=== PATIENT | male | born 1955 | race Caucasian/White ===

== ENCOUNTER 2016-08-28 05:58 | Day surgery (SDC) | payer OTHER ==
[2016-08-28] VITALS (14 sets, daily range): BP systolic 81–145; BP diastolic 44–82; PULSE 74–107; RESP 6–18; O2SAT 93–99
[~2016-08-28] VITALS: Ht 188 cm; Wt 112.6 kg
[2016-08-28] MEDS: Lactated Ringer's 1,000 ML IV SCH ×5 (05:00→22:41)
[~2016-08-28 05:58] MED LIST: AMT25T PO; CYCL5TAB PO; DOCU250C2 PO; HYDR25TA4 PO; LISI40TA PO; NAPR250T PO; OXYC1TAB24 PO; TAMS0.4C98 PO
[2016-08-28] MEDS ORDERED: Bacitracin 50,000 unit Inj IRRIGATION ONE ×2 (06:00→08:17)
[2016-08-28] MEDS ORDERED: Thrombin Powder 5,000 Unit TOPICAL ONE ×2 (06:00→08:17)
[2016-08-28] MEDS ORDERED: CeFAZolin Inj 2 GM in IV Premix 1 EACH IV ONE (06:00)
--- NOTE | 2016-08-28 07:12 | PCM.HPANE ---
Patient Data Date of Service: Aug 28, 2016 Surgeon Admitting Provider: Attending Provider:Sigifredo Chavez MD Primary Care Physician:Dilia Del Rio Other Provider:Tori Arango Anesthesia Reason for Visit Lumbar Stenosis With Neurogenic Cladication Ht/WT & BMI Height (Feet): 6 Height (Inches): 2 Weight (Kilograms): 112.6 Body Mass Index 31.00 Allergies Coded Allergies: No Known Allergies (Unverified , 08/27/16) Past Anesthesia History Anesthesia History: Denies:: Abnormal Airway, Anesthesia Reactions, Difficult Intubation, Fam Anesthesia Reaction, Fam Malignant Hypertherm, Malignant Hyperthermia Diabetes History Hx Diabetes?: No MRSA MRSA: No Medications Hypertension Medication: Yes (HCTZ,LISINOPRIL) Home Meds Incl Beta Jovanni: No Reported Medications oxyCODONE-Acetaminophen 5-325 mg 1 Each Tablet1-2 Tab PO Q4-6H PRN For Pain Ref 0 08/27/16 Docusate Sodium 250 Mg [id number] Mg PO BID PRN For Constipation Ref 0 08/27/16 Cyclobenzaprine 5 Mg Tablet5-10 Mg PO TID PRN Spasm 08/27/16 Tamsulosin (Flomax)0.4 Mg Capsule0.4 Mg PO DAILY Ref 0 11/30/15 Naproxen 250 Mg [id number] Mg PO BID PRN For Pain Ref 0 11/30/15 Lisinopril 40 Mg [id number] Mg PO DAILY 30 Days Ref 0 11/30/15 Hydrochlorothiazide 25 Mg [id number] Mg PO DAILY 30 Days Ref 0 11/30/15 Amitriptyline 25 Mg Tab25 Mg PO HS Ref 0 11/30/15 Discontinued Reported Medications [infla-mazing] No Conflict Check 12/01/15 [red vessel] No Conflict Check 12/01/15 History History of ENT Problems?: Yes HEENT History: Positive for:: Dysphagia Hearing Problem (tinitis) Sinus Problem (S/P SINUS SURGERY) Denies:: Abnormal Airway Difficult Intubation Denture Type: None Teeth Condition: Within Normal Limits Hx of Heart Problems?: Yes Cardiovascular History: Positive for:: Hypertension Denies:: AICD Atrial Fibrillation Chest Pain Pacemaker Valvular Heart Disease Hx of Respiratory Problem?: Yes Respiratory History: Positive for:: Asthma (childhood) Use of C-PAP Machine (JAMES+ W/ CPAP) Denies:: COPD Cough Hemoptysis Pneumonia Tuberculosis Hx Neurologic Problems?: Yes Neurological History: Denies:: CVA Other Neurological Pertinent: HX CONCUSSION Hx of GI Problems?: Yes Hx of Problems?: No Male Hx: Denies:: Prostate Problems Scrotal Mass Testicular Surgery Skin History: Denies:: History Skin Disorders? Pressure Ulcers Hx Musculoskeletal Problems?: Yes Musculoskeletal History: Positive for:: Osteoarthritis Denies:: Back Injury (C/OF BACK PAIN, LT FOOT DROP) Joint Replacement Hx of Psycho/Social Problems?: Yes Psycho Social History: Positive for:: Anxiety Hx Depression Hx Surgeries?: Yes (deviated septum, throat surgery for apnea) Hx Any Other Health Problems?: Yes Other History: Denies:: Cancer Endocrine Disease Hospitalization Thyroid Disease Hx Diabetes: No Hx Alcohol Use: Yes (occas) Smoking Status: Never Smoker Have You Smoked inLast 12 mo: No Stop/Bang Treated for Sleep Apnea?: Yes Do You Have a CPAP Machine?: Yes S-Snoring: Do You Snore Loudly: No T-Tired: feel tired, fatigued: Yes O-Obsered: Observed not breath: Yes P-Blood Pressure: treated: Yes B- Body Mass Index > 35 kg/m2: No A- Age over 50: Yes N- Neck Large Circumference: No G- Gender Male: Yes JAMES Total Score: 5 JAMES Category 1: Yes Risk Assessment Category Category 1A: Patient has history of documented sleep apnea, and HAS NOT received any narcotic, sedative or anesthesia administration during this stay. Category 1B: Patient has history of documented sleep apnea, and HAS received any narcotic , sedative or anesthesia administration during this stay Category 2: Patient has SUSPECTED Obstructive Sleep Apnea, and HAS received any narcotic , sedative or anesthesia administration during this stay. Category 3: Patient has SUSPECTED Obstructive Sleep Apnea and HAS NOT received narcotic, sedative or anesthesia administration during this stay. Category 4: Outpatient in Procedural Areas with known sleep apnea or who screen positive for High Risk via the STOP/BANG questionnaire. Exam Exam Vital Signs Vital Signs Date Time Temp Pulse Resp B/P Pulse Ox O2 Delivery O2 Flow Rate FiO2 08/28/16 06:36 36.6 80 16 145/82 93 Room Air General Appearance: Alert, Oriented X3, Cooperative, No Acute Distress HEENT/AIRWAY: MP 3 Lungs: Clear to Auscultation, Normal Air Movement Heart: Exam Unremarkable, Regular Rate/Rhythm, No Murmurs/Rubs/Gallops Meds/Labs/Diagnostics Admission Meds Current Medications Lactated Ringer's (Lr) 1,000 ml @ 120 mls/hr Q8H20M IV Last administered on t 06:45; Start 08/28/16 at 05:00; Stop 08/28/16 at 13:19 Plan Impression Patient chart reviewed, patient interviewed and anesthestic plan with risks, benefits, and alternatives discussed, and informed consent obtained. NPO per Anesth. Guidelines: Yes ASA Physical Status: ASA2 Mod Systemic Disease Anesthetic Plan: GA Bene/Risks/Altern/Consents: Yes HP Complete Prior to Induction: Yes Rashel Griffiths MD Aug 28, 2016 07:12
[2016-08-28] MEDS ORDERED: Lactated Ringer's 500 ML IV PRN (07:33)
[2016-08-28] MEDS ORDERED: Lactated Ringer's 1,000 ML IV SCH (07:33)
[2016-08-28] MEDS ORDERED: Phenylephrine 10,000 mCg/mL Inj IVPUSH PRN (07:35)
[2016-08-28] MEDS ORDERED: hydrALAZINE 20 mg/mL Inj IVPUSH PRN (07:35)
[2016-08-28] MEDS ORDERED: fentaNYL-PF 50 mCg/mL 2 mL Inj IVPUSH PRN (07:35)
[2016-08-28] MEDS ORDERED: MetoCLOpramide 5 mg/mL 2 mL Inj IVPUSH PRN (07:35)
[2016-08-28] MEDS ORDERED: Atropine 0.4 mg/mL Inj IVPUSH PRN (07:35)
[2016-08-28] MEDS ORDERED: Ondansetron 2 mg/mL 2 mL Inj IVPUSH PRN ×3 (07:35→12:05)
[2016-08-28] MEDS ORDERED: Labetalol 5 mg/mL 4 mL Inj IV PRN (07:35)
[2016-08-28] MEDS ORDERED: HYDROmorphone 1 mg/mL Inj IVPUSH PRN ×2 (07:35→12:05)
[2016-08-28] MEDS ORDERED: EPHEDrine Sulfate 50 mg/mL Inj IVPUSH PRN (07:35)
[2016-08-28] MEDS ORDERED: Bupivacaine Liposome 1.3% 20 mL Inj ONE (08:00)
[2016-08-28] MEDS ORDERED: Lactated Ringer's 1,000 ML IV ONE ×2 (08:10→09:13)
[2016-08-28] MEDS ORDERED: Bupivacaine-MPF 0.25% 30 mL Inj INFILTRATE ONE (08:17)
--- NOTE | 2016-08-28 08:31 | DRSVH ---
PROCEDURE: X-RAY LUMBAR SPINE, 1 VIEW INDICATIONS: BILATERAL LUMBAR LAMINECTOMY COMPARISON: [facility], MR, LUMBAR SPINE W/O CONTRAST, 12/10/2013, 13:56. FINDINGS: 1 limited intraoperative fluoroscopically stored images of the lumbosacral junction was obtained for intraoperative hardware localization purposes. This image is not meant for diagnostic purposes. Int raoperative findings related to a lumbar fusion procedure are present. A marker is seen along the po sterior soft tissues directed towards the L5-S1 level. IMPRESSION: Intraoperative images of the lumbosacral junction. Note: The marker at the L5-S1 level was discussed with Dr. Chavez by telephone at 0827 hours on . Dictated by: Byron Santos M.D. on 08/28/2016 at 8:25 Approved by: Byron Santos M.D. on 08/28/2016 at 8:29
[2016-08-28] MEDS ORDERED: Dexamethasone 4 mg/mL Inj IVPUSH PRN (12:05)
[2016-08-28] MEDS ORDERED: Senna-Docusate 8.6-50 mg Tablet PO PRN (12:05)
[2016-08-28] MEDS ORDERED: Sodium Biphos-Phos 133 mL Enema RECTAL PRN (12:05)
[2016-08-28] MEDS ORDERED: Polyethylene Glycol (PEG) 17 Gm Powder PO PRN (12:05)
[2016-08-28] MEDS ORDERED: Magnesium Hydroxide 10 mL Oral Concentration PO PRN (12:05)
[2016-08-28] MEDS: Acetaminophen IV 1,000 MG in IV Premix 1 EACH IV SCH ×2 (12:05→18:06)
[2016-08-28] MEDS ORDERED: Phenylephrine/NS-PF 100 mCg/mL 5 mL Syringe IVPUSH ONE ×2 (12:22→14:03)
--- NOTE | 2016-08-28 12:57 | OP ---
[address] [address] OPERATIVE REPORT PATIENT: DAV GILL : 1955 MR#: [id number] ADMIT: 08/28/2016 JOB ID: [id number] DATE OF SURGERY: 08/28/2016 SURGEON: Sigifredo Chavez MD PREOPERATIVE DIAGNOSIS(ES): L3, L4, L5, S1 bilateral stenosis. POSTOPERATIVE DIAGNOSIS(ES): L3, L4, L5, S1 bilateral stenosis. PROCEDURE: 1. Bilateral L3, L4, L5, and S1 partial laminectomy and foraminotomies. 2. [place] of subcutaneous fat through a separate incision for epidural fat graft. ATTENDING SURGEON: Sigifredo Chavez MD ORDER DESK CLERK: Alton Gomez PA-C. The bilingual office assistant provided irrigation, retraction, and suction, and was medically necessary. OPERATIVE FINDINGS: Severe spinal stenosis with calcification of the ligamentum flavum at the interspinous spaces at L3-4, L4-5, and L5-S1. Deficient dura due to calcified ligamentum flavum and unintentional incidental durotomies repaired primarily. OPERATIVE PROCEDURE: Patient was brought to the operating room. General anesthesia with oral intubation was administered. Patient was turned prone on the laminectomy frame. The back was prepped and draped in sterile fashion. IV Ancef was given. Time-out was performed. All extremities were padded. Compression boots were applied to the legs. The skin was prepped and draped in a sterile fashion. Skin and paraspinal muscles were injected with Marcaine containing epinephrine. C-arm fluoroscopy was used to localize the incision. Midline incision was made from L3 to S1. The incision was carried down through subcutaneous tissue and on both sides of the spinous processes from L3 to S1 bilaterally. Paraspinal muscles were stripped off the lamina. Additional imaging was taken with the fluoroscopic unit to confirm levels. A deep self-retaining retractor was placed. The inferior half of the L3, L4, and L5 spinous processes were removed with bone rongeur. The superior edge of the S1 spinous process was also removed. The lamina was then thinned out with a high-speed bur and under the operating microscope the lamina and medial facets at L3-4, L4-5, and L5-S1 were thinned down. Severely thickened yellow ligament was encountered at each level. The ligament was adherent to the thecal sac and was partially calcified at each level. Under the microscope, with microdissection technique, a small curette was used to carefully dissect the calcified ligament away from the dura. During this dissection there were several incidental durotomies that could not be avoided because of the deficient dura. These were each repaired primarily with 7-0 [place]-Omar suture in a watertight fashion. The largest of these was on the left side at the L3-4 interlaminar space and then there were smaller ones on the left at L4-5 and L5-S1. Dissection was carried out laterally until the lateral wall of the spinal canal was identified and the L3, L4, L5, and S1 nerve roots were visualized and decompressed. Hemostasis was obtained with bipolar cautery. Complete decompression was confirmed by visual inspection and palpation with a David elevator. Duraform dural graft matrix was placed on the exposed dura to reinforce the closure and then fibrin glue was injected over that. Subcutaneous fat was harvested through a separate skin incision that was adjacent to the primary incision and pieces of subcutaneous fat were added to reinforce the dural closure at each laminotomy defect. The wound was then closed with 0-Vicryl fascia closely spaced, 2-0 Vicryl subcuticular, and a 4-0 Vicryl subcuticular on the skin. Liposomal bupivacaine was injected into the paraspinal muscles and fascia and into the subcutaneous tissue before final closure. A sterile dressing was applied. The patient was turned supine, extubated, and brought to the recovery room in stable condition. There were no intraoperative complications. ESTIMATED BLOOD LOSS: 100 cc.
--- NOTE | 2016-08-28 13:33 | PCM.ANEP1 ---
Post Anesthesia PACU Phase 1 Assessment Date of Service: Aug 28, 2016 Vital Signs Vital Signs Date Time Temp Pulse Resp B/P Pulse Ox O2 Delivery O2 Flow Rate FiO2 08/28/16 13:30 85 17 115/64 95 Nasal Cannula 2 08/28/16 13:17 88 14 106/61 94 Nasal Cannula 2 08/28/16 13:04 84 15 104/67 95 Nasal Cannula 2 08/28/16 12:50 79 13 97/49 99 Simple Mask 10 08/28/16 12:35 81 6 94/48 99 Simple Mask 10 08/28/16 12:20 78 15 84/44 99 Simple Mask 10 08/28/16 12:15 79 13 81/44 99 Simple Mask 10 08/28/16 12:10 75 15 82/47 98 Simple Mask 10 08/28/16 12:05 36.3 74 14 87/44 98 Simple Mask 10 08/28/16 06:36 36.6 80 16 145/82 93 Room Air Anesthetic Administered: GA Level of Alertness: Awake, talking MILLER's with Equal Strength: Yes Pain: Yes Pain Scale Score: 3 Nausea or Vomiting: No CV Function & Hydration Stable: Yes Airway Device: Oralpharangeal Airway Oxygen Delivery: Nasal Cannula Lungs: Clear to Auscultation, Normal Air Movement PACU Phase 2 Assessment Complications: No Follow up Care: No Patient Instructions Provided: Yes Rashel Griffiths MD Aug 28, 2016 13:33
[2016-08-28] MEDS ORDERED: Vasopressin 20 Unit/mL Inj ONE (14:03)
[2016-08-28] MEDS ORDERED: EPHEDrine/NS 5 mg/mL 5 mL Syringe ONE (14:03)
[2016-08-28] MEDS ORDERED: Lidocaine PF 1% 30 mL Inj ONE (14:03)
[2016-08-28] MEDS ORDERED: Ondansetron 2 mg/mL 2 mL Inj ONE (14:03)
[2016-08-28] MEDS ORDERED: HYDROmorphone 2 mg/mL Inj ONE (14:03)
[2016-08-28] MEDS ORDERED: Ketamine 10 mg/mL 20 mL Inj ONE (14:03)
[2016-08-28] MEDS ORDERED: Dexamethasone 4 mg/mL Inj ONE (14:03)
[2016-08-28] MEDS ORDERED: fentaNYL-PF 50 mCg/mL 2 mL Inj ONE (14:03)
[2016-08-28] MEDS ORDERED: Succinylcholine Chloride 20 mg/mL 5 mL Inj ONE (14:09)
[2016-08-28] MEDS ORDERED: Propofol 10,000 mCg/mL 20 mL Inj ONE (14:09)
[2016-08-28] MEDS: CeFAZolin Inj 2 GM in IV Premix 1 EACH IV SCH (16:50)
[2016-08-28] MEDS: Senna-Docusate 8.6-50 mg Tablet PO SCH (19:57)
[2016-08-29] MEDS: Acetaminophen IV 1,000 MG in IV Premix 1 EACH IV SCH ×3 (00:13→12:20)
[2016-08-29 00:16] VITALS: BP 130/73; PULSE 96; RESP 16; O2SAT 97
[2016-08-29] MEDS: CeFAZolin Inj 2 GM in IV Premix 1 EACH IV SCH (00:46)
[2016-08-29] MEDS: Lactated Ringer's 1,000 ML IV SCH ×2 (04:05→12:05)
[2016-08-29 04:19] VITALS: BP 144/83; PULSE 95; RESP 18; O2SAT 97
[2016-08-29] MEDS ORDERED: Lisinopril 40 Tablet PO SCH (08:30)
[2016-08-29] MEDS: Senna-Docusate 8.6-50 mg Tablet PO SCH (09:10)
[2016-08-29 09:15] VITALS: BP 125/81; PULSE 95; RESP 20; O2SAT 99
--- NOTE | 2016-08-29 10:01 | PCM.DISURG ---
Surgical Discharge Instruction Date of Service Aug 29, 2016 Dates of Hospitalization Date of Hospital Admission Aug 28, 2016 at 13:49 Providers Admitting Physician: Sigifredo Chavez MD Primary Care Physician: Dilia Del Rio Attending Physician: Sigifredo Chavez MD Discharge Diagnosis Discharge Diagnosis Status post Bilateral L3, L4, L5, and S1 partial laminectomy and foraminotomies with harvest of subcutaneous fat through a separate incision for epidural fat graft. Post Operative diagnosis Status post Bilateral L3, L4, L5, and S1 partial laminectomy and foraminotomies with harvest of subcutaneous fat through a separate incision for epidural fat graft Additional Instructions Discharge Instructions Lumbar Decompression Instructions What is my recovery like? The hospital stay is usually overnight with discharge the next day. A lumbar brace is worn for comfort only. What are my restrictions? You should not lift anything heavier than five pounds. You should not perform any excessive bending from the waist or twisting movements. Can I Shower? You may shower when you go home. You must remove the outside dressing on the 7th day after surgery, or change as needed if soiled or saturated (replacing new sterile gauze & water proof dressing) otherwise leave alone. The remaining small pieces of tape (steri-strips) directly on top of the incision may get wet. The steri-strips will fall off on their own. Can I drive? No, you should not drive until specifically given permission from your Doctor in a follow up appointment. Most Patient's can drive in 2-3 weeks if they are not taking narcotic pain medications or muscle relaxers. You may ride in a car, but should avoid trips longer than two hours in duration. When can I return work / sports? Your Doctor will discuss your return to work with you on your first postoperative follow-up appointment. Most patients may return to work within 2 weeks for sedentary jobs. More physically demanding jobs may require 3-6 months of healing before such work can be considered. When should I call the doctor? You should call your Doctor or go to the Emergency Department if you develop chest pain, over-sedation, shortness of breath, a temperature greater than 101.5 F, severe uncontrolled pain or weakness, loss of bowel or bladder function , choking, lots or drainage, pus discharge or constipation. Instructions Regarding Comfort & Pain Medication Use: During the recovery period , even with the use of pain medication, you may experience pain at the site of surgery. You may also have the same type of pain you had before surgery. Please use your pain scale as a guide for taking your pain medication. When your pain is greater than 4 out of 10, or when your pain reaches your personal tolerable level of pain, take your pain medication as prescribed. Use your pain medication on an 'as needed' basis. This means if your pain level is within your tolerable level of pain you DO NOT need to take the medication. As you get better, you will notice you can increase the time interval between doses and decrease the number of tablets you are taking, gradually taking less and less pain medication. Taking pain medication when it is not necessary (for example when your pain is tolerable or acceptable) can result in dangerous side effects and over- sedation. Signs and symptoms of over-sedation include: drowsiness, excessive sleeping, slow or difficult breathing, slurred speech, impaired thinking, confusion, impaired motor coordination. If you have any of these symptoms stop taking the medication and immediately contact your doctor. IF SYMPTOMS ARE LIFE THREATENING CALL 911. To decrease pain and swelling, frequently apply an ice pack for 20 min intervals with at least one hour off. When to take Acetaminophen for pain? If you don't have liver problems, allergies and/or Tylenol is not in your current pain medication. Take Extra Strength Tylenol 500mg 2 tabs by mouth every 6 hours as needed for pain. DO NOT EXCEED 8 TABS PER DAY. Follow Up Plan Follow Up Plan Follow-up with Dr. Sigifredo Chavez M.D. at [facility] in [place] for first postoperative evaluation in 2 weeks # . Follow-up Provider (F9): Sigifredo Chavez MD Additional Information Attending Statement All documentation reviewed & orders authorized by Dr. Sigifredo Chavez M.D. Alton Gomez PA-C Aug 29, 2016 10:01
--- NOTE | 2016-08-29 10:13 | PCM.DC.SUR ---
Discharge Summary Date of Service: Aug 29, 2016 Date of Hospital Admission: Aug 28, 2016 at 13:49 Date of Operation(s): 08/28/2016 Date of Discharge: 08/29/2016 Diagnosis at Time of Discharge Status post Bilateral L3, L4, L5, and S1 partial laminectomy and foraminotomies with harvest of subcutaneous fat through a separate incision for epidural fat graft with incidental durotomies Problems: Operation Bilateral L3, L4, L5, and S1 partial laminectomy and foraminotomies with harvest of subcutaneous fat through a separate incision for epidural fat graft with incidental durotomies. Hospital Course: Hospital Course: The patient was admitted through same day surgery and subsequently underwent a Bilateral L3, L4, L5, and S1 partial laminectomy and foraminotomies with harvest of subcutaneous fat through a separate incision for epidural fat graft with incidental durotomies. The patient tolerated the procedure well. The patient was then was transferred to PACU and then to the OSC floor. The patient was admitted for postoperative pain control, PT/OT, supervised for JAMES & chronic pain co-morbidities with respiratory care, CPAP, nurse monitoring, continuous pulse oximetry, and discharge planning. The Patient's overnight course was within normal limits. Currently the patient has complaints of surgical site pain with referred spasm buttock & residual numbness in his extremities. There is however significant improvement of the patient's residual lumbar spinal stenosis related symptoms especially with regards to his lower extremities. The patient is able to stand up straighter but has not ambulated enough to recognize improvement in his previous neurogenic claudication presentation. He does however complain of mild likely anesthesia or medication induced neurogenic bladder symptoms, but is able to significantly control his bladder function. The patient denied any significant related positional "spinal" headache. The patient denies headache, severe sore throat or dysphagia, chest pain, shortness of breath, abdominal pain, nausea, vomiting, constipation, diarrhea, or any new onset &/or location of pain, weakness or paresthesias aside from the surgical site. PHYSICAL EXAM This is a well developed, well nourished, male who is alert, cooperative, and appears to be in no acute distress with a pleasant affect & euthymic mood. Exam of the head is normocephalic. PERRL, EOMI, without facial droop, hearing grossly intact, nostrils patent, oral cavity and pharynx normal. Voice is within normal limits Exam or the heart reveals regular rate and rhythm without audible murmurs The lungs are clear to auscultation bilaterally. The abdomen is non- tender and non-distended. Exam of the lumbar surgical wound reveals that it is clean, dry, and intact; without signs of infection, inflammation, and/or hematoma. Gross exam of the extremities reveals strength & sensation are grossly intact within the patient's normal baseline limits except improve diminished sensation in the bilateral lower extremities. The patient was eventually able to get out of bed and ambulate within acceptable limits. Therapy services made recommendations for disposition. Flatus was appreciated and the patient was able to void without significant difficulty. The pain was gradually under control. The patient denied any significant positional "spinal" headache. The patient was afebrile on discharge. The patient's incision(s) was clean, dry and intact. The dressing was changed to the Surgeon's specifications. The patient progressed well with rehabilitation and was subsequently discharged to home in stable condition. The patient verbally affirmed understanding when given clear instruction regarding the postoperative care and follow-up including but not limited to seeking immediate medical attention for any positional "spinal" headache, chest pain, shortness of breath, over-sedation, a temperature greater than 101.5 F, severe uncontrolled pain or weakness, loss of bowel or bladder function, choking , lots or drainage, pus discharge or constipation. All questions were answered. Disposition: Home in stable condition. Follow-up Plan: Follow-up with Dr. Sigifredo Chavez M.D. at [facility] in [facility] in 2 weeks for wound check # [phone]. Amitriptyline (Amitriptyline) 25 Mg Tab 25 MG PO HS (Reported) Cyclobenzaprine (Cyclobenzaprine) 5 Mg Tablet 5-10 MG PO TID PRN PRN Spasm ( Reported) Docusate Sodium (Docusate Sodium) 250 Mg Capsule 250 MG PO BID PRN PRN For Constipation (Reported) Hydrochlorothiazide (Hydrochlorothiazide) 25 Mg Tablet 25 MG PO DAILY (Reported ) Lisinopril (Lisinopril) 40 Mg Tablet 40 MG PO DAILY (Reported) Naproxen (Naproxen) 250 Mg Tablet 250 MG PO BID PRN PRN For Pain (Reported) Tamsulosin (Flomax) 0.4 Mg Capsule 0.4 MG PO DAILY (Reported) oxyCODONE-Acetaminophen 5-325 mg (oxyCODONE-Acetaminophen 5-325 mg) 1 Each Tablet 1-2 TAB PO Q4-6H PRN PRN For Pain (Reported) Discharge Medications: 1. Prescribed during preoperative appointment. 2. Electronically sent Medrol Dosepak just in case of severe uncontrollable pain or spasm to take as directed until finished. Attending Statement: All documentation reviewed & orders are provided by Dr. Sigifredo Chavez M.D. copies to: Dilia Del Rio Scott PA-C Aug 29, 2016 10:13
[2016-08-29 15:28] VITALS: BP 116/67; PULSE 87; RESP 20; O2SAT 95
== END 2016-08-29 17:11 | disposition home or self-care (01) ==
LOC: SAS 05:58 → OSC 13:49 → UNDOADMIN 13:49 → OSC 13:49 → UNDODISIN 08-29 17:11 → SAS 08-29 17:11
PROVIDERS: ATTEND Neurological Surgery
DX: M48.06 Spinal stenosis, lumbar region (principal); M48.08 Spinal stenosis, sacral and sacrococcygeal region; G89.18 Other acute postprocedural pain; I10 Essential (primary) hypertension; F41.8 Other specified anxiety disorders; G47.33 Obstructive sleep apnea (adult) (pediatric); M19.90 Unspecified osteoarthritis, unspecified site; M54.12 Radiculopathy, cervical region; M21.372 Foot drop, left foot
CPT/HCPCS: 20926; 63047; 63048; 72020; 76000; 94640; 94664; 96365; 96375; 96376; 97162; J0131; J0330; J0690; J1100; J1170; J2370; J2405; J3010; J7120